=== PATIENT | female | born 1955 | race Two or more races ===

== ENCOUNTER 2021-08-30 20:04 | Emergency (ER) | payer OTHER ==
[~2021-08-30] VITALS: Ht 152.4 cm; Wt 72.6 kg
--- NOTE | 2021-08-30 20:25 | NUR ---
BIBFAMILY C/O LEFT SHOULDER PAIN X1 WEEK. SEEN AT URGENT CARE XRAY DONE SEEN CHIROPRACTOR FOR CUPPING AND ACUPUNCTURE NO RELIEF. 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 PATIENT ALERT AND ORIENTED X3. AMBULATORY WITH NON LABORED BREAHTING.
[2021-08-30 20:26] VITALS: BP 185/73
--- NOTE | 2021-08-30 20:33 | NUR ---
RAD AT BEDSIDE
--- NOTE | 2021-08-30 22:03 | NUR ---
Patient discharged to home in stable condition. Written and verbal after care instructions given. Patient verbalizes understanding of instruction.
== END 2021-08-30 22:08 | disposition home or self-care (01) ==
LOC: ER 20:07
DX: S40.012A Contusion of left shoulder, initial encounter (principal); I10 Essential (primary) hypertension; Z88.0 Allergy status to penicillin; X58.XXXA Exposure to other specified factors, initial encounter; Y93.89 Activity, other specified; Y92.89 Other specified places as the place of occurrence of the external cause; Y99.8 Other external cause status
CPT/HCPCS: 73030-TC

== ENCOUNTER 2022-03-03 11:02 | Emergency (ER) | payer OTHER ==
[~2022-03-03] VITALS: Ht 157.5 cm; Wt 74.8 kg
[2022-03-03] MEDS ORDERED: BENA20TA9 PO (11:07)
[2022-03-03] MEDS ORDERED: LEVO137T40 PO (11:07)
[2022-03-03 12:12] VITALS: BP 138/89
== END 2022-03-03 12:12 | disposition home or self-care (01) ==
LOC: ER 11:05
DX: J06.9 Acute upper respiratory infection, unspecified (principal); Z20.822 Contact with and (suspected) exposure to COVID-19; Z88.0 Allergy status to penicillin; I10 Essential (primary) hypertension; E78.00 Pure hypercholesterolemia, unspecified; Z79.899 Other long term (current) drug therapy
CPT/HCPCS: C9803; U0003

== ENCOUNTER 2022-06-09 09:15 | Emergency (ER) | payer OTHER ==
[~2022-06-09] VITALS: Ht 157.5 cm; Wt 72.6 kg
[~2022-06-09 09:15] MED LIST: BENA20TA9 PO; LEVO137T40 PO
--- NOTE | 2022-06-09 09:31 | NUR ---
PT BIB FAMILY TO ED BED 07 C/O SOB, FEVER AND BODY ACHES SINCE YESTERDAY. PT STATED SHE HAD A POSITIVE COVID HOME TEST YESTERDAY WELL. 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 AWAITING MD YUAN.
[2022-06-09] MEDS ORDERED: ACETAMINOPHEN ES 500 MG TABLET ONE (10:03)
--- NOTE | 2022-06-09 10:09 | NUR ---
CLEANER AND PRESSER AT BEDSIDE FOR XRAY
[2022-06-09] MEDS: ACETAMINOPHEN ES 500 MG TABLET PO ONE (10:14)
--- NOTE | 2022-06-09 10:14 | NUR ---
BILINGUAL INSTRUCTOR AT BEDSIDE FOR BLOOD DRAW.
--- NOTE | 2022-06-09 10:15 | NUR ---
COVID SWAB DONE AND SENT TO LAB
[2022-06-09 10:26] LABS: BASOPHILS % (AUTO) 0.3 % (0.0-2.0); EOSINOPHILS % (AUTO) 1.7 % (0.0-6.0); HEMATOCRIT 40 % (33-45); HEMOGLOBIN 13.4 g/dL (11.5-14.8); LYMPHOCYTES # (AUTO) 1.7 K/uL (0.8-4.8); LYMPHOCYTES % (AUTO) 39.5 % (20.0-44.0); MEAN CORPUSCULAR HGB CONC 34 g/dl (31.0-36.0); MEAN CORPUSCULAR VOLUME 86 fL (82-100); MONOCYTES # (AUTO) 0.6 K/uL (0.1-1.30); MONOCYTES % (AUTO) 15.1 % (2.0-12.0); NEUTROPHILS # (AUTO) 1.8 K/uL (1.8-8.9); NEUTROPHILS % (AUTO) 43.4 % (43.0-81.0); PLATELET COUNT (AUTO) 210 K/uL (150-450); RED BLOOD CELL COUNT(AUTO) 4.62 MIL/uL (4.0-5.2); WHITE BLOOD COUNT (AUTO) 4.2 K/uL (4.3-11.0)
[2022-06-09 10:36] LABS: CALCIUM, SERUM 8.6 mg/dL (8.5-10.1); CARBON DIOXIDE 26 mmol/L (21-32); CHLORIDE 105 mmol/L (98-107); CREATININE 0.7 mg/dL (0.6-1.3); GLUCOSE 87 mg/dL (74-106); POTASSIUM 3.9 mmol/L (3.5-5.1); SODIUM SERUM 137 mmol/L (136-145); UREA NITROGEN, BLOOD 8 mg/dL (7-18)
--- NOTE | 2022-06-09 14:05 | NUR ---
Patient discharged to home in stable condition. Written and verbal after care instructions given. Patient and Daughter verbalizes understanding of instruction.
[2022-06-09 14:08] VITALS: BP 135/85
== END 2022-06-09 14:05 | disposition home or self-care (01) ==
LOC: ER 09:18
DX: U07.1 COVID-19 (principal); R07.9 Chest pain, unspecified; R51.9 Headache, unspecified; M79.10 Myalgia, unspecified site; Z88.0 Allergy status to penicillin; I10 Essential (primary) hypertension; E03.9 Hypothyroidism, unspecified; Z79.890 Hormone replacement therapy
CPT/HCPCS: 36415; 71045-TC; 80048-TC; 84484-TC; 85025-TC; C9803